=== PATIENT | male | born 1985 | race Caucasian/White ===

== ENCOUNTER 2017-06-26 14:35 | Outpatient (CLI) ==
[2014-01-25 09:16] VITALS: BMI 42.3
== END 2017-06-26 14:36 | disposition short-term general hospital (02) ==
LOC: AMBL 14:35
PROVIDERS: ATTEND Internal Medicine
DX: J18.9 Pneumonia, unspecified organism (principal)

== ENCOUNTER 2017-06-26 16:03 | Outpatient (CLI) ==
[2014-01-25 09:16] VITALS: BMI 42.3
== END 2017-06-26 16:04 | disposition home or self-care (01) ==
LOC: LAB 16:03
PROVIDERS: ATTEND Emergency Medicine
DX: J06.9 Acute upper respiratory infection, unspecified (principal); R68.89 Other general symptoms and signs
CPT/HCPCS: 87804

== ENCOUNTER 2017-08-24 13:20 | Outpatient (CLI) ==
[2014-01-25 09:16] VITALS: BMI 42.3
--- NOTE | 2017-08-24 14:35 | US ---
EXAM: Bilateral lower extremity venous Doppler History: Follow-up extensive bilateral lower extremity venous thrombosis. Comparison: Outside facility lower extremity ultrasound demonstrated bilateral lower extremity throm bosis but this study was not available. Technique: Multiple sonographic images through the bilateral lower extremity were obtained. Color d uplex Doppler was used to interrogate vascular flow. Findings: No residual thrombosis is seen involving the right common femoral, greater saphenous, prof unda, superficial femoral, popliteal, peroneal, posterior tibial and anterior tibial veins. There is persistent thrombosis involving the left profunda, left superficial femoral, left popliteal and left peroneal veins but demonstrates partial compression except with no compression of the left peroneal v ein. Impression: 1. No residual thrombosis of the right lower extremity. 2. Partial nonocclusive thrombosis of the left profunda, left superficial femoral and left popliteal veins and occlusive thrombosis of the left peroneal vein.
== END 2017-08-24 13:21 | disposition home or self-care (01) ==
LOC: RAD 13:20
PROVIDERS: ATTEND Emergency Medicine
DX: I82.4Z3 Acute embolism and thrombosis of unspecified deep veins of distal lower extremity, bilateral (principal); I10 Essential (primary) hypertension; Z79.01 Long term (current) use of anticoagulants
CPT/HCPCS: 36415; 80053; 85025; 85610

== ENCOUNTER 2017-08-31 15:29 | Outpatient (CLI) ==
[2014-01-25 09:16] VITALS: BMI 42.3
== END 2017-08-31 15:30 | disposition home or self-care (01) ==
LOC: RHC-LAB 15:29
PROVIDERS: ATTEND Emergency Medicine
DX: D50.8 Other iron deficiency anemias (principal)
CPT/HCPCS: 36415; 85025

== ENCOUNTER 2017-09-10 12:20 | Outpatient (CLI) ==
[2014-01-25 09:16] VITALS: BMI 42.3
== END 2017-09-10 12:21 | disposition home or self-care (01) ==
LOC: LAB 12:20
PROVIDERS: ATTEND Emergency Medicine
DX: Z51.81 Encounter for therapeutic drug level monitoring (principal); Z79.01 Long term (current) use of anticoagulants; I82.4Z3 Acute embolism and thrombosis of unspecified deep veins of distal lower extremity, bilateral; R31.0 Gross hematuria
CPT/HCPCS: 36415; 81001; 85610

== ENCOUNTER 2017-09-14 14:29 | Outpatient (CLI) ==
[2014-01-25 09:16] VITALS: BMI 42.3
== END 2017-09-14 14:30 | disposition home or self-care (01) ==
LOC: RHC-LAB 14:29
PROVIDERS: ATTEND Emergency Medicine
DX: Z51.81 Encounter for therapeutic drug level monitoring (principal); Z79.01 Long term (current) use of anticoagulants; I82.4Z3 Acute embolism and thrombosis of unspecified deep veins of distal lower extremity, bilateral
CPT/HCPCS: 36415; 85610

== ENCOUNTER 2017-09-17 13:19 | Outpatient (CLI) ==
[2014-01-25 09:16] VITALS: BMI 42.3
== END 2017-09-17 13:20 | disposition home or self-care (01) ==
LOC: RHC-LAB 13:19
PROVIDERS: ATTEND Emergency Medicine
DX: Z51.81 Encounter for therapeutic drug level monitoring (principal); Z79.01 Long term (current) use of anticoagulants
CPT/HCPCS: 36415; 85610

== ENCOUNTER 2017-09-24 16:09 | Outpatient (CLI) ==
[2014-01-25 09:16] VITALS: BMI 42.3
== END 2017-09-24 16:10 | disposition home or self-care (01) ==
LOC: RHC-LAB 16:09
PROVIDERS: ATTEND Emergency Medicine
DX: Z51.81 Encounter for therapeutic drug level monitoring (principal); Z79.01 Long term (current) use of anticoagulants; I82.4Z3 Acute embolism and thrombosis of unspecified deep veins of distal lower extremity, bilateral
CPT/HCPCS: 36415; 85610

== ENCOUNTER 2017-10-01 10:49 | Outpatient (CLI) ==
[2014-01-25 09:16] VITALS: BMI 42.3
== END 2017-10-01 10:50 | disposition home or self-care (01) ==
LOC: RHC-LAB 10:49
PROVIDERS: ATTEND Emergency Medicine
DX: Z51.81 Encounter for therapeutic drug level monitoring (principal); Z79.01 Long term (current) use of anticoagulants; I82.4Z3 Acute embolism and thrombosis of unspecified deep veins of distal lower extremity, bilateral
CPT/HCPCS: 36415; 85610

== ENCOUNTER 2017-10-08 14:00 | Outpatient (RCR) ==
[2014-01-25 09:16] VITALS: BMI 42.3
--- NOTE | 2017-09-14 16:07 | RS.OPPTEV2 ---
Date of Note: 09/11/17 Visit #: 1 Date of Evaluation: 09/11/17 Payer Source: Insurance Date of Onset/Injury/Change in Status: 06/26/17 Treatment Diagnosis: Right foot drop, generalized weakness, gait abnormality History of Condition/Mechanism of Injury:: Patient states this issue all start in June when he got the flu. He developed Acute Respiratory Distress Syndrome with having H1N1 flu. He was transferred to [facility]. He was in ICU for a month with ventilator dependency and multiple complications afterwards with ARDS,diffuse alveolar hemorrhage, bilateral DVTs and also multiple hospital-acquired pneumonia. Patient was extubated and develped critical care illness myopathy and acute delirium. Mental status gradually improved , but he was very deconditioned and he was transferred to [facility] for inpatient rehab. Patient was then discharged home approximately 08/15/17, where he then received Home Health therapy until last week. Prior Level of Function.....Patient was independent with: ADL's, Self Care, Work /Vocation, Caregiving, Ambulation/Mobility, Community Integration/Access Level of Function: Prior to onset, patient was working at [employer] and was fully independent with ambulation and ADL's. Functional Limitations: Sleep, Self Care, ADL's, Reaching, Pushing, Pulling, Lifting, Carrying, Sitting, Standing, Bending, Squatting, Ambulation, Community Access/Integration Current Subjective/complaints:: Patient reports he just finished with Home Health last week. States he still has low endurance and general weakness. States he is walking with a rolling walker outside his home. He lives in a mobile home and can walk without an assistive device because he can hold onto the alex or furniture. He has a wheelchair ramp or stairs to enter his mobile home. He has a roommate that cannot help him at home due to the roommate work schedule. States he has had no falls since being home from the hospital, but has stumbled a few times. He wears his AFO when he is outside his home. He tries to go without it at home, because it causes his leg to swell. States he probably has 15% sensation in the right foot. States he has been having cardiac issues. Blood pressure and hear rate will get high at times. Reports he montiors his pulse oxygen level and heart rate a few times a day. Reports difficulty getting in and out of vehicle, depending on on the height of the vehicle. He has a wheelchair that he uses when going long distances such as [employer]. Reports difficulty sleeping. States he takes Ambien and Xanax to be able to sleep. Reports waking usually around 1-2 am and again at 4-5 am due to jaw pain and/or headaches. The only thing he can take for pain is Tylenol. He also has tried warm compresses. Medical History Medical History: Hypertension, Arthritis (hands and knees) Medical History Comments:: recent loss of over 100 pounds from this hospitalization Smoking Status: Current every day smoker Hx Home Medications: Warfarin,alprazolam,chlorthalidone,fluticasone,hydralazine, loratadine,metoprolol,nifedipine,spironolactone,zolpidem,buspirone,acetaminophen , multivitamin Patient's Goals: His goal is to regain his strenth, prior level of independence , and return to work. Functional Outcome Measure LE Functional Scale: 23 (2380=71.25% impairment) - G Codes & Severity Modifier G Codes & Modifier: NA Source of G Code score: NA Observation - Observation Inspection: Patient presents to therapy department with rolling walker. He has AFO in place to right LE. Posture: Forward Head, Rounded Shoulders Gait - Gait Pattern Gait Comments: Patient ambulates with a rolling walker, independently. He demonstrates decreased stance on right LE as well as decreased right hip and knee flexion. Performs sit to stand transfer independently with good safety. General Range of Motion: Bilateral UE AROM is WFL's throughout. Bilateral LE AROM is WFL's, with the exception of right ankle DF and toe extension. patient is able to wiggle his toes and does show tone in anterior tib with attempts at DF. Muscle Strength: Bilateral UE strength is generally 4/5 throughout. Left wood bucker strength 85 lbs, right wood bucker strength 100 lbs. Left LE 4+/5 throughout. Right LE: hip Abduction,Er,IR 4-/5. all else 4/5. Right knee 4/5. Ankle PF 3+/5, DF 1/5, inversion 3/5, eversion 3-/5. Trunk strength 3/5. Sensation - Sensation Comments: Patient reports slight impaired sensation to light touch and deep pressure along bilateral anterior and lateral thighs. Reports no sensation to light touch and minimal sensation to deep pressure along the entire right lower leg, ankle, and foot. Balance - Sitting Balance Static Sitting Balance: Good Dynamic Sitting Balance: Good - Standing Balance Static Standing Balance: Good (-) Dynamic Standing Balance: Fair (-) Additional Comments: Additional Comments: Bed mobility is independent on low, narrow treatment table. Interventions - Exercise/Activities/Manual Therapy Exercises/Activities: NA Manual Therapy: NA - Charges Timed Code Treatment Minutes: 0 Total Treatment Time: 90 mins Procedures billed for this date of service:: Eval high complexity EVALUATION COMPLEXITY LEVEL EVALUATION COMPLEXITY LEVEL: HISTORY: High (Morbid obesity, HTN, DVT's, prolonged hospitalization), EXAM OF BODY SYSTEMS: High (strength, ROM, sensation , balance, coordination), CLINICAL PRESENTATION: High (HR, blood pressure, and O2 sat cont to be monitored), CLINICAL DECISION MAKING: High Assessment Assessment: Patient presents to therapy with a diagnosis of right foot drop and LE weakness. He presents with general weakness of the trunk and LE's. Demonstrates impaired static and dynamic balance. Requires a walker for safety with ambulation. He demonstrates significant weakness in the right LE and is at a high risk for falls. He demonstrates great potential to benefit from strengthening and balance activities to improve his independence and return to his prior level of function. Patient Education: Education of diagnosis, Body/Joint mechanics, Activity Modification, Education of Plan of Care Rehab Potential: Good Short Term Goals Goal #1: Pt independent and compliant with HEP. Goal to be met by: 09/27/17 Goal #2: Trunk strength improved to 4/5. Goal to be met by: 10/04/17 Goal #3: Right ankle DF 3/5. Goal to be met by: 10/04/17 Goal #4: Pt to amb. with cane short distances, independently with minimal gait dev. 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 Goal to be met by: 10/28/17 Goal #2: Score on LE functional index improved to 50/80. Goal to be met by: 10/28/17 Goal #3: Pt to amb. w/o assistive device independently, community distances. Goal to be met by: 05/20/18 Goal #4: Pt able to return to work with minimal limitations. Goal to be met by: 10/28/17 Plan - Treatment to be Provided Procedures: Therapeutic Exercises, Therapeutic Activity, Neuromuscular Rehab, Patient Education Modalities: Electrical Stimulation (for neuromuscular facilitation to anterior tib) - Treatment Plan Frequency: 2-3 times a week Duration: 6 weeks ORDER # VISITS AND/OR THROUGH DATE: 10/28/17 - Treatment Code (1) Muscle weakness (generalized) Code(s): M62.81 - MUSCLE WEAKNESS (GENERALIZED) Comments: M62.81 (2) Gait abnormality Code(s): R26.9 - UNSPECIFIED ABNORMALITIES OF GAIT AND MOBILITY Comments: R26.9 (3) Impaired functional mobility, balance, gait, and endurance Code(s): Z74.09 - OTHER REDUCED MOBILITY Comments: Z74.09 (4) History of acute respiratory distress syndrome (ARDS) Code(s): Z87.09 - PERSONAL HISTORY OF OTHER DISEASES OF THE RESPIRATORY SYSTEM Comments: Z87.09
--- NOTE | 2017-09-24 14:27 | RS.OPPTDN ---
Subjective Date of Note: 09/24/17 Visit #: 2 Date of Evaluation: 09/11/17 Payer Source: Insurance Treatment Diagnosis: Right foot drop, generalized weakness, gait abnormality Current Subjective/complaints:: Patient enters clinic using walker and wearing R AFO,but reports and demos he is now able to dorsiflex the R ankle after removing the brace. Interventions - Exercise/Activities/Manual Therapy Exercises/Activities: 50 mins. AROM both LE's all directions with 4 # resistance ,3/15 each.Bridging and LAQ's.HEP instruction of same exercises done here today. Total minutes of Exercise: 50 Manual Therapy: NA - Charges Timed Code Treatment Minutes: 50 Total Treatment Time: 50 Procedures billed for this date of service:: ex 3 Assessment: Patient tolerates exercises well,has R ankle dorsiflexion to neutral position today.He reports fatigue only today,no sharp pain noted.He has good safety awareness ,does not use AFO or walker at this time. Patient Education: Education of diagnosis, Body/Joint mechanics, Home Exercise Program, Home Safety, Activity Modification, Education of Plan of Care Short Term Goals Goal #1: Pt independent and compliant with HEP. Goal to be met by: 09/27/17 Progress towards Goal:: Progressing Goal #2: Trunk strength improved to 4/5. Goal to be met by: 10/04/17 Goal #3: Right ankle DF 3/5. Goal to be met by: 10/04/17 Progress towards Goal:: Progressing Goal #4: Pt to amb. with cane short distances, independently with minimal gait dev. Goal to be met by: 10/04/17 Nursing Home Goals Goal #1: Patient knows HEP and to continue ex's to maintain functional level at D/C. Goal to be met by: 10/28/17 Goal #2: Score on LE functional index improved to 50/80. Goal to be met by: 10/28/17 Goal #3: Pt to amb. w/o assistive device independently, community distances. Goal to be met by: 10/28/17 Goal #4: Pt able to return to work with minimal limitations. Goal to be met by: 10/28/17 Plan PLAN OF CARE EXPIRES ON:: 10/28/17 ORDER # VISITS AND/OR THROUGH DATE: 10/28/17 PLAN: Cont PT to return to PLOF,including ADL's and working.
--- NOTE | 2017-09-26 14:22 | RS.OPPTDN ---
Subjective Date of Note: 09/26/17 Visit #: 3 Date of Evaluation: 09/11/17 Payer Source: Insurance Treatment Diagnosis: Right foot drop, generalized weakness, gait abnormality Current Subjective/complaints:: Patient reports no unusual soreness or pain after last session. Interventions - Exercise/Activities/Manual Therapy Exercises/Activities: 60 mins. AROM all extremities,beginning on multi-gym in seated position for postural pullbacks with 10 # ,progressed to 20 #,seated chest press motion with 20 #.biceps curlswith 20 #.LE exercises of legpress @ 90 #,calf raises with 60 #.All exercises 3/15 today.O 2 sats. 95-99 %,HR 105 to 130. Total minutes of Exercise: 60 Manual Therapy: NA Total minutes of Manual Therapy: 0 - Charges Timed Code Treatment Minutes: 55 Total Treatment Time: 65 Procedures billed for this date of service:: ex 4 Assessment: Patient tolerates exercises well.He reports fatigue only ,no increase in pain.He has minimal shakiness as he progresses with treatment.He does have steadier transfers and gait for functional distances. Patient Education: Education of diagnosis, Body/Joint mechanics, Home Exercise Program, Home Safety, Activity Modification, Education of Plan of Care Patient demonstrates compliance with HEP?: Yes Short Term Goals Goal #1: Pt independent and compliant with HEP. Goal to be met by: 09/27/17 Progress towards Goal:: Progressing Goal #2: Trunk strength improved to 4/5. Goal to be met by: 10/04/17 Goal #3: Right ankle DF 3/5. Goal to be met by: 10/04/17 Progress towards Goal:: Progressing Goal #4: Pt to amb. with cane short distances, independently with minimal gait dev. Goal to be met by: 10/04/17 Progress towards Goal:: Progressing Intermediate Goals Goal #1: Patient knows HEP and to continue ex's to maintain functional level at D/C. Goal to be met by: 10/28/17 Goal #2: Score on LE functional index improved to 50/80. Goal to be met by: 10/28/17 Goal #3: Pt to amb. w/o assistive device independently, community distances. Goal to be met by: 10/28/17 Goal #4: Pt able to return to work with minimal limitations. Goal to be met by: 10/28/17 Plan PLAN OF CARE EXPIRES ON:: 10/28/17 ORDER # VISITS AND/OR THROUGH DATE: 10/28/17 PLAN: Cont. PT to improve strength in all extremities and trunk.
--- NOTE | 2017-10-01 14:42 | RS.OPPTDN ---
Subjective Date of Note: 10/01/17 Visit #: 4 Date of Evaluation: 09/11/17 Payer Source: Insurance Treatment Diagnosis: Right foot drop, generalized weakness, gait abnormality Current Subjective/complaints:: Patient reports muscle soreness in the hips after last session,but no sharp pain.He feels the therapy is helping.He enters clinic today without using AFO on the R today ,also no use of walker.He has good safety awareness and has these devices in the car if he is going to be away from home for longer time periods. Interventions - Exercise/Activities/Manual Therapy Exercises/Activities: 60 mins. AROM all extremities,beginning on multi-gym in seated position for postural pullbacks with 20 # ,progressed to 30 #,seated chest press motion with 20 #.Biceps curls with 20 #.LE exercises of leg press @ 120 #,calf raises with 90 #.All exercises 08/23 today.O 2 sats. 95-99 %,HR 99 to 117. Total minutes of Exercise: 60 Manual Therapy: NA Total minutes of Manual Therapy: 0 HOME EXERCISE PROGRAM: Given vidhi thercedrickd for general strengthening to all extremities. - Charges Timed Code Treatment Minutes: 60 Total Treatment Time: 65 Procedures billed for this date of service:: ex 4 Assessment: Patient continues to have increased strenght in all extremities , resulting in steadier transfers and gait.He also has improved heart rate today with resistive exercises,approx. 20 bpm less than last session , O 2 sats. are good. Patient Education: Body/Joint mechanics, Home Exercise Program, Home Safety, Activity Modification, Education of Plan of Care Patient demonstrates compliance with HEP?: Yes Short Term Goals Goal #1: Pt independent and compliant with HEP. Goal to be met by: 09/27/17 Progress towards Goal:: Progressing Goal #2: Trunk strength improved to 4/5. Goal to be met by: 10/04/17 Progress towards Goal:: Progressing Goal #3: Right ankle DF 3/5. Goal to be met by: 10/04/17 Progress towards Goal:: Progressing Goal #4: Pt to amb. with cane short distances, independently with minimal gait dev. 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 Goal to be met by: 10/28/17 Progress towards goal: Progressing Goal #2: Score on LE functional index improved to 50/80. Goal to be met by: 10/28/17 Goal #3: Pt to amb. w/o assistive device independently, community distances. Goal to be met by: 10/28/17 Progress towards goal: Progressing Goal #4: Pt able to return to work with minimal limitations. Goal to be met by: 10/28/17 Plan PLAN OF CARE EXPIRES ON:: 10/28/17 ORDER # VISITS AND/OR THROUGH DATE: 10/28/17 PLAN: Cont. PT to increase strength ,returning him to highest PLOF possible.
--- NOTE | 2017-10-03 15:28 | RS.OPPTDN ---
Subjective Date of Note: 10/03/17 Visit #: 5 Date of Evaluation: 09/11/17 Payer Source: Insurance Treatment Diagnosis: Right foot drop, generalized weakness, gait abnormality Current Subjective/complaints:: Patient reports having to take pain meds. due to jaw pain today.He continues to be pleasant and motivated to improve. Interventions - Exercise/Activities/Manual Therapy Exercises/Activities: 60 mins. AROM all extremities,beginning on multi-gym in seated position for postural pullbacks with 20 # ,progressed to 30 #,seated chest press motion with 20 #.Biceps curls with 20 #.LE exercises of leg press @ 210#,calf raises with 90 #.All exercises 3/15 today.O 2 sats. 95-99 %,HR 99 to 117. Total minutes of Exercise: 60 Manual Therapy: NA Total minutes of Manual Therapy: 0 HOME EXERCISE PROGRAM: Given black theraband for general strengthening to all extremities. - Charges Timed Code Treatment Minutes: 60 Total Treatment Time: 65 Procedures billed for this date of service:: ex 4 Assessment: Patient tolerates exercises well today,plan to progress to standing resistive exercises next session for core strengthening as he does the extremities exercise.He fatigues more easily today with eccentric motions.He continues to have R active dorsiflexion to neutral position ,with additional 10 degrees with passive stretch.He is not wearing AFO today or using walker due to good progress. Patient Education: Body/Joint mechanics, Home Exercise Program, Education of Plan of Care Short Term Goals Goal #1: Pt independent and compliant with HEP. Goal to be met by: 09/27/17 Progress towards Goal:: Progressing Goal #2: Trunk strength improved to 4/5. Goal to be met by: 10/04/17 Progress towards Goal:: Progressing Goal #3: Right ankle DF 3/5. Goal to be met by: 10/04/17 Progress towards Goal:: Progressing Goal #4: Pt to amb. with cane short distances, independently with minimal gait dev. 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 Goal to be met by: 10/28/17 Progress towards goal: Progressing Goal #2: Score on LE functional index improved to 50/80. Goal to be met by: 10/28/17 Goal #3: Pt to amb. w/o assistive device independently, community distances. Goal to be met by: 10/28/17 Progress towards goal: Partially Met Goal #4: Pt able to return to work with minimal limitations. Goal to be met by: 10/28/17 Plan PLAN OF CARE EXPIRES ON:: 10/28/17 ORDER # VISITS AND/OR THROUGH DATE: 10/28/17 PLAN: Cont.PT to improve strength in all extremities and core,resulting in safegait on all surfaces.
--- NOTE | 2017-10-05 14:36 | RS.OPPTDN ---
Subjective Date of Note: 10/05/17 Visit #: 6 Date of Evaluation: 09/11/17 Payer Source: Insurance Treatment Diagnosis: Right foot drop, generalized weakness, gait abnormality Current Subjective/complaints:: No c/o.Reports feeling stronger,enters clinic without assistive device of R AFO. Interventions - Exercise/Activities/Manual Therapy Exercises/Activities: 60 mins. AROM all extremities,beginning on multi-gym in standing position for postural pullbacks with 20 # ,progressed to 30 #,seated chest press motion with 20 #.Biceps curls with 20 #.LE exercises of leg press @ 210#,calf raises with 90 #.All exercises 08/23 today.O 2 sats. 95-99 %,HR 99 to 117. Total minutes of Exercise: 60 Manual Therapy: NA Total minutes of Manual Therapy: 0 HOME EXERCISE PROGRAM: Given black theraband for general strengthening to all extremities. - Charges Timed Code Treatment Minutes: 60 Total Treatment Time: 60 Procedures billed for this date of service:: ex 4 Assessment: Progressing well,has increased UER/LE strength,better control of eccentrics in the UE's.He tolerates the leg press with good technique also.His SOA as he fatigues is easily recovered with good O2 sats. present. Patient Education: Education of diagnosis, Body/Joint mechanics, Home Exercise Program, Home Safety, Activity Modification, Education of Plan of Care Patient demonstrates compliance with HEP?: Yes Short Term Goals Goal #1: Pt independent and compliant with HEP. Goal to be met by: 09/27/17 Progress towards Goal:: Progressing Goal #2: Trunk strength improved to 4/5. Goal to be met by: 10/04/17 Progress towards Goal:: Progressing Goal #3: Right ankle DF 3/5. Goal to be met by: 10/04/17 Progress towards Goal:: Partially Met Goal #4: Pt to amb. with cane short distances, independently with minimal gait dev. Goal to be met by: 10/04/17 Progress towards Goal:: Met Care Home Goals Goal #1: Patient knows HEP and to continue ex's to maintain functional level at D/C. Goal to be met by: 10/28/17 Progress towards goal: Progressing Goal #2: Score on LE functional index improved to 50/80. Goal to be met by: 10/28/17 Goal #3: Pt to amb. w/o assistive device independently, community distances. Goal to be met by: 10/28/17 Progress towards goal: Partially Met Goal #4: Pt able to return to work with minimal limitations. Goal to be met by: 10/28/17 Plan PLAN OF CARE EXPIRES ON:: 10/28/17 ORDER # VISITS AND/OR THROUGH DATE: 10/28/17 PLAN: Continue PT to return patient to PLOF,safely returning to work.
--- NOTE | 2017-10-08 15:17 | RS.OPPTDN ---
Subjective Date of Note: 10/08/17 Visit #: 7 Date of Evaluation: 09/11/17 Payer Source: Insurance Treatment Diagnosis: Right foot drop, generalized weakness, gait abnormality Current Subjective/complaints:: Patient continues to be highly motivated.He had appt. earlier today with the neurologist,is released to drive . Interventions - Exercise/Activities/Manual Therapy Exercises/Activities: 60 mins. ,beginning on elliptical for 2.5 mins. supervised ,followed by dynamic balance exercises of standing on theraband platform system,weaving in and around cones in floor,stepping over cones ,both forwards and laterally.Picking up cones from floor level.UE / core strengthening using 20 # resistance on multi-gym for postural pullbacks 315 , seated biceps curls,3/10 reps. Total minutes of Exercise: 60 Manual Therapy: NA Total minutes of Manual Therapy: 0 HOME EXERCISE PROGRAM: Given black theraband for general strengthening to all extremities. - Charges Timed Code Treatment Minutes: 60 Total Treatment Time: 60 Procedures billed for this date of service:: NMR 3,ex 1 Assessment: Patient has improved dynamic balance for higher level challenges.He domingo ssafe O@ saturations and heart rate with moderate activity.He does require frequent rest periods due to weakness in trunk and all extremities.He hs mderate SOA,but recovers well with rest periods. Patient Education: Body/Joint mechanics, Home Exercise Program, Home Safety, Activity Modification, Education of Plan of Care Short Term Goals Goal #1: Pt independent and compliant with HEP. Goal to be met by: 09/27/17 Progress towards Goal:: Progressing Goal #2: Trunk strength improved to 4/5. Goal to be met by: 10/04/17 Progress towards Goal:: Progressing Goal #3: Right ankle DF 3/5. Goal to be met by: 10/04/17 Progress towards Goal:: Partially Met Goal #4: Pt to amb. with cane short distances, independently with minimal gait dev. 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 Goal to be met by: 10/28/17 Progress towards goal: Progressing Goal #2: Score on LE functional index improved to 50/80. Goal to be met by: 10/28/17 Goal #3: Pt to amb. w/o assistive device independently, community distances. Goal to be met by: 10/28/17 Progress towards goal: Partially Met Goal #4: Pt able to return to work with minimal limitations. Goal to be met by: 10/28/17 Plan PLAN OF CARE EXPIRES ON:: 10/28/17 ORDER # VISITS AND/OR THROUGH DATE: 10/28/17 PLAN: Continue skilled PT to improve strength in trunk and all extremities, returning to highest level of function.
== END 2017-10-08 23:59 ==
PROVIDERS: ATTEND Emergency Medicine
DX: M21.371 Foot drop, right foot (principal)

== ENCOUNTER 2017-10-09 12:29 | Outpatient (CLI) ==
[2017-08-24 13:26] VITALS: BMI 42.3
== END 2017-10-09 12:30 | disposition home or self-care (01) ==
LOC: RHC-LAB 12:29
PROVIDERS: ATTEND Emergency Medicine
DX: I82.4Z3 Acute embolism and thrombosis of unspecified deep veins of distal lower extremity, bilateral (principal)
CPT/HCPCS: 36415; 85610

== ENCOUNTER 2017-10-16 15:06 | Outpatient (CLI) ==
[2017-08-24 13:26] VITALS: BMI 42.3
== END 2017-10-16 15:07 | disposition home or self-care (01) ==
LOC: RHC-LAB 15:06
PROVIDERS: ATTEND Emergency Medicine
DX: Z51.81 Encounter for therapeutic drug level monitoring (principal); Z79.01 Long term (current) use of anticoagulants; M26.609 Unspecified temporomandibular joint disorder, unspecified side
CPT/HCPCS: 36415; 85610

== ENCOUNTER 2017-10-23 15:33 | Outpatient (CLI) ==
[2017-08-24 13:26] VITALS: BMI 42.3
== END 2017-10-23 15:34 | disposition home or self-care (01) ==
LOC: RHC-LAB 15:33
PROVIDERS: ATTEND Emergency Medicine
DX: Z51.81 Encounter for therapeutic drug level monitoring (principal); Z79.01 Long term (current) use of anticoagulants
CPT/HCPCS: 36415; 85610

== ENCOUNTER 2017-10-26 13:00 | Outpatient (RCR) ==
[2017-08-24 13:26] VITALS: BMI 42.3
--- NOTE | 2017-10-10 15:20 | RS.OPPTDN ---
Subjective Date of Note: 10/10/17 Visit #: 8 Date of Evaluation: 09/11/17 Payer Source: Insurance Treatment Diagnosis: Right foot drop, generalized weakness, gait abnormality Current Subjective/complaints:: Patient reports feeling better on a daily basis this week. Interventions - Exercise/Activities/Manual Therapy Exercises/Activities: 50 mins. BIODbluepulse BALANCE SYSTEM , including postural stability,weight shifting ,limits of stability , maze control,random control, ball toss exercise. Total minutes of Exercise: 50 Manual Therapy: NA HOME EXERCISE PROGRAM: Given vidhi clark for general strengthening to all extremities. - Charges Timed Code Treatment Minutes: 50 Total Treatment Time: 50 Procedures billed for this date of service:: NMR 3 Assessment: Improved static and dynamic balance ,reports R ankle and R heel discomfort with prolonged static stance today.He has steadier gait ,continues to not use R AFO as the active dorsiflexion has improved.He is very motivated and compliant to all recommendations of the therapy staff. Patient Education: Education of diagnosis, Body/Joint mechanics, Home Exercise Program, Home Safety, Activity Modification, Education of Plan of Care Short Term Goals Goal #1: Pt independent and compliant with HEP. Goal to be met by: 09/27/17 Progress towards Goal:: Progressing Goal #2: Trunk strength improved to 4/5. Goal to be met by: 10/04/17 Progress towards Goal:: Progressing Goal #3: Right ankle DF 3/5. Goal to be met by: 10/04/17 Progress towards Goal:: Partially Met Goal #4: Pt to amb. with cane short distances, independently with minimal gait dev. 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 Goal to be met by: 10/28/17 Progress towards goal: Progressing Goal #2: Score on LE functional index improved to 50/80. Goal to be met by: 10/28/17 Goal #3: Pt to amb. w/o assistive device independently, community distances. Goal to be met by: 10/28/17 Progress towards goal: Partially Met Goal #4: Pt able to return to work with minimal limitations. Goal to be met by: 10/28/17 Plan PLAN OF CARE EXPIRES ON:: 10/28/17 ORDER # VISITS AND/OR THROUGH DATE: 10/28/17 PLAN: Continue PT to return patient to highest level of function ,including return to work safely.
--- NOTE | 2017-10-12 15:13 | RS.OPPTDN ---
Subjective Date of Note: 10/12/17 Visit #: 9 Date of Evaluation: 09/11/17 Payer Source: Insurance Treatment Diagnosis: Right foot drop, generalized weakness, gait abnormality Current Subjective/complaints:: Patient reports he has not slept well the past few nights,sometimes due to L jaw pain. Interventions - Exercise/Activities/Manual Therapy Exercises/Activities: 50 mins. total,beginning on elliptical (supervised)for 2.5 mins. ,then progressed to seated leg press,beginning woth both LE's @ 150#, 180#,210#,15 reps. each.Single leg press @ 75#,3/15 each LE.R ankle active dorsiflexion with blue theraband.Ended session with 5 reps.standing mini-squats with large therapy ball on wall behind his back.O2 sats.96-98%,hr 107 -130 bpm. Total minutes of Exercise: 50 Manual Therapy: NA Total minutes of Manual Therapy: 0 HOME EXERCISE PROGRAM: Given black theraband for general strengthening to all extremities. - Charges Timed Code Treatment Minutes: 50 Total Treatment Time: 55 Procedures billed for this date of service:: ex 3 Assessment: Patient fatigues more easily today ,possibly due to not sleeping as well recently.He reports knee pain with mini-squats due arthritic symptoms, crepitus present.He does have good technique with exercises,excellent awareness of his limitations. Patient Education: Education of diagnosis, Body/Joint mechanics, Home Exercise Program, Home Safety, Activity Modification, Education of Plan of Care Patient demonstrates compliance with HEP?: Yes Short Term Goals Goal #1: Pt independent and compliant with HEP. Goal to be met by: 09/27/17 Progress towards Goal:: Progressing Goal #2: Trunk strength improved to 4/5. Goal to be met by: 10/04/17 Progress towards Goal:: Progressing Goal #3: Right ankle DF 3/5. Goal to be met by: 10/04/17 Progress towards Goal:: Met Goal #4: Pt to amb. with cane short distances, independently with minimal gait dev. Goal to be met by: 10/04/17 Progress towards Goal:: Met [facility] Goals Goal #1: Patient knows HEP and to continue ex's to maintain functional level at D/C. Goal to be met by: 10/28/17 Progress towards goal: Progressing Goal #2: Score on LE functional index improved to 50/80. Goal to be met by: 10/28/17 Goal #3: Pt to amb. w/o assistive device independently, community distances. Goal to be met by: 10/28/17 Progress towards goal: Partially Met Goal #4: Pt able to return to work with minimal limitations. Goal to be met by: 10/28/17 Plan PLAN OF CARE EXPIRES ON:: 10/28/17 ORDER # VISITS AND/OR THROUGH DATE: 10/28/17 PLAN: Continue skilled PT to return to PLOF for safe DL's,return to work safely.
--- NOTE | 2017-10-15 15:27 | RS.OPPTDN ---
Subjective Date of Note: 10/15/17 Visit #: 10 Date of Evaluation: 09/11/17 Payer Source: Insurance Treatment Diagnosis: Right foot drop, generalized weakness, gait abnormality Current Subjective/complaints:: Patient reports increased L jaw pain today , but overall feels stronger . Interventions - Exercise/Activities/Manual Therapy Exercises/Activities: 60 mins. total,beginning on treadmill x 8.5 mins. for 2/ 10th of a mile ,supervised HR and O2 sats.Multi gym resistive exercises for UE all directions,trunk rotation ,chest press,biceps curls ,push downs.Resistance beginning @ 30 # ,increased to 40 # ,3/20 each motion .50 # used for pushdowms toward floor.HEP review.HR 108 -142 ,O2 sats 95 -97% Total minutes of Exercise: 60 Manual Therapy: NA Total minutes of Manual Therapy: 0 HOME EXERCISE PROGRAM: Given black theraband for general strengthening to all extremities. - Charges Timed Code Treatment Minutes: 60 Total Treatment Time: 60 Procedures billed for this date of service:: ex 4 Assessment: Progressing well in all areas.He has improved core strength , continues to have R dorsi flexion ,resulting in ambulating without assistive device or R AFO.Hhis eccentric control for UE's is improving.He requires frequent rest periods as the resistive exercises progress. Patient Education: Body/Joint mechanics, Activity Modification, Education of Plan of Care Patient demonstrates compliance with HEP?: Yes Short Term Goals Goal #1: Pt independent and compliant with HEP. Goal to be met by: 09/27/17 Progress towards Goal:: Partially Met Goal #2: Trunk strength improved to 4/5. Goal to be met by: 10/04/17 Progress towards Goal:: Partially Met Goal #3: Right ankle DF 3/5. Goal to be met by: 10/04/17 Progress towards Goal:: Met Goal #4: Pt to amb. with cane short distances, independently with minimal gait dev. Goal to be met by: 10/04/17 Progress towards Goal:: Met M[facility] Goals Goal #1: Patient knows HEP and to continue ex's to maintain functional level at D/C. Goal to be met by: 10/28/17 Progress towards goal: Progressing Goal #2: Score on LE functional index improved to 50/80. Goal to be met by: 10/28/17 Goal #3: Pt to amb. w/o assistive device independently, community distances. Goal to be met by: 10/28/17 Progress towards goal: Partially Met Goal #4: Pt able to return to work with minimal limitations. Goal to be met by: 10/28/17 Plan PLAN OF CARE EXPIRES ON:: 10/28/17 ORDER # VISITS AND/OR THROUGH DATE: 10/28/17 PLAN: Continue skilled PT to return patient to PLOF.
--- NOTE | 2017-10-17 15:31 | RS.OPPTDN ---
Subjective Date of Note: 10/17/17 Visit #: 11 Date of Evaluation: 09/11/17 Payer Source: Insurance Treatment Diagnosis: Right foot drop, generalized weakness, gait abnormality Current Subjective/complaints:: Patient reports feeling stronger for short duration ADL's,but feels he has minnimal endurance at this time. Interventions - Exercise/Activities/Manual Therapy Exercises/Activities: 60 mins. total,beginning on leg press,3/20 reps. 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 Total minutes of Exercise: 60 Manual Therapy: NA Total minutes of Manual Therapy: 0 HOME EXERCISE PROGRAM: Given black theraband for general strengthening to all extremities. 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 Patient Education: Education of diagnosis, Body/Joint mechanics, Home Exercise Program, Home Safety, Activity Modification, Education of Plan of Care Patient demonstrates compliance with HEP?: Yes Short Term Goals Goal #1: Pt independent and compliant with HEP. Goal to be met by: 09/27/17 Progress towards Goal:: Partially Met Goal #2: Trunk strength improved to 4/5. Goal to be met by: 10/04/17 Progress towards Goal:: Partially Met Goal #3: Right ankle DF 3/5. Goal to be met by: 10/04/17 Progress towards Goal:: Met Goal #4: Pt to amb. with cane short distances, independently with minimal gait dev. 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 Goal to be met by: 10/28/17 Progress towards goal: Progressing Goal #2: Score on LE functional index improved to 50/80. Goal to be met by: 10/28/17 (39 today) Progress towards goal: Progressing Goal #3: Pt to amb. w/o assistive device independently, community distances. Goal to be met by: 10/28/17 Progress towards goal: Partially Met Goal #4: Pt able to return to work with minimal limitations. 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
--- NOTE | 2017-10-19 16:27 | RS.OPPTDN ---
Subjective Date of Note: 10/19/17 Visit #: 12 Date of Evaluation: 09/11/17 Payer Source: Insurance Treatment Diagnosis: Right foot drop, generalized weakness, gait abnormality Current Subjective/complaints:: No c/o. Interventions - Exercise/Activities/Manual Therapy Exercises/Activities: 50 mins. total,BIODFacebook BALANCE SYSTEM for each challenge of postural stability ,limits of stability,maze ,weight shift percentages of weight distribution,random control at medium skill level today. Total minutes of Exercise: 50 Manual Therapy: NA Total minutes of Manual Therapy: 0 HOME EXERCISE PROGRAM: Given vidhi clark for general strengthening to all extremities. - Charges Timed Code Treatment Minutes: 50 Total Treatment Time: 60 Procedures billed for this date of service:: NMR 3 Assessment: Patient tolerates higher level challenges today at medium difficulty level.He only reports R ankle weakness as the treatment progresses.He continues to have active R dorsiflexion ,ambulating without any assistive device ,or AFO. Patient Education: Education of Plan of Care Patient demonstrates compliance with HEP?: Yes Short Term Goals Goal #1: Pt independent and compliant with HEP. Goal to be met by: 09/27/17 Progress towards Goal:: Partially Met Goal #2: Trunk strength improved to 4/5. Goal to be met by: 10/04/17 Progress towards Goal:: Met Goal #3: Right ankle DF 3/5. Goal to be met by: 10/04/17 Progress towards Goal:: Met Goal #4: Pt to amb. with cane short distances, independently with minimal gait dev. 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 Goal to be met by: 10/28/17 Progress towards goal: Partially Met Goal #2: Score on LE functional index improved to 50/80. Goal to be met by: 10/28/17 (39 today) Progress towards goal: Progressing Goal #3: Pt to amb. w/o assistive device independently, community distances. Goal to be met by: 10/28/17 Progress towards goal: Partially Met Goal #4: Pt able to return to work with minimal limitations. Goal to be met by: 10/28/17 Plan PLAN OF CARE EXPIRES ON:: 05/20/18 ORDER # VISITS AND/OR THROUGH DATE: 10/28/17 PLAN: Continue skilled PT for patient LOF ,return to [facility] safely.
--- NOTE | 2017-10-22 14:13 | RS.OPPTDN ---
Subjective Date of Note: 10/22/17 Visit #: 13 Date of Evaluation: 09/11/17 Payer Source: Insurance Treatment Diagnosis: Right foot drop, generalized weakness, gait abnormality Current Subjective/complaints:: Patient reports feeling stronger ,was eable to get uop from floor without assistance over the weekend. Interventions - Exercise/Activities/Manual Therapy Exercises/Activities: 55mins. total, 08/28 multi gym exercises with 20 # for biceps curls ,30 # for pullbacks ,40 # for standing chest press motion.1 set each for trunk rotation with 30 # ,to L and R side.Ended session on leg press , @ 225#,calf raises x 20 reps with 225 #.O2 sats. @97-98 %.HR 105 -135 without symptoms. Total minutes of Exercise: 55 Manual Therapy: NA Total minutes of Manual Therapy: 0 HOME EXERCISE PROGRAM: Given black theraband for general strengthening to all extremities. - Charges Timed Code Treatment Minutes: 55 Total Treatment Time: 60 Procedures billed for this date of service:: ex 4 Assessment: Patient progressing well toward all rehab goals,increased strength in core and all extremities,with report of fatigue only,no chest pain or extreme SOA.He is aware of initiating D/C plan due to good progress. Patient Education: Body/Joint mechanics, Home Exercise Program, Home Safety, Education of Plan of Care Patient demonstrates compliance with HEP?: Yes Short Term Goals Goal #1: Pt independent and compliant with HEP. Goal to be met by: 09/27/17 Progress towards Goal:: Met Goal #2: Trunk strength improved to 4/5. Goal to be met by: 10/04/17 Progress towards Goal:: Met Goal #3: Right ankle DF 3/5. Goal to be met by: 10/04/17 Progress towards Goal:: Met Goal #4: Pt to amb. with cane short distances, independently with minimal gait dev. 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 Goal to be met by: 10/28/17 Progress towards goal: Partially Met Goal #2: Score on LE functional index improved to 50/80. Goal to be met by: 10/28/17 Progress towards goal: Progressing Goal #3: Pt to amb. w/o assistive device independently, community distances. Goal to be met by: 10/28/17 Progress towards goal: Met Goal #4: Pt able to return to work with minimal limitations. Goal to be met by: 10/28/17 Plan PLAN OF CARE EXPIRES ON:: 10/28/17 ORDER # VISITS AND/OR THROUGH DATE: 10/28/17 PLAN: Cont. skilled PT to achieve maximum strength for safe ADL' s.
--- NOTE | 2017-10-26 14:44 | RS.OPPTDC ---
Date of Discharge: 10/26/17 Date of Evaluation: 09/11/17 Number of Visits: 14 Treatment Diagnosis: Right foot drop, generalized weakness, gait abnormality Current Level of Function: 52.25 % LE strength deficit currently per functional scale test. Functional Outcome Measure LE Functional Scale: 39 - G Codes & Severity Modifier G Codes & Modifier: NA Source of G Code score: NA Observation - Observation Posture: Normal General Range of Motion: WNL Muscle Strength: UE's 4/5,LE's 4 + /5 Interventions - Exercise/Activities/Manual Therapy Exercises/Activities: 50mins. total, 08/28 multi gym exercises with 20 # for biceps curls ,30 # for pullbacks ,40 # for standing chest press motion.1 set each for trunk rotation with 30 # ,to L and R side.Ended session on leg press , @ 225#,calf raises x 20 reps with 225 #.O2 sats. @97-98 %.HR 91 @ rest , 105 -135 with exercise. Total minutes of Exercise: 50 Manual Therapy: NA Total minutes of Manual Therapy: 0 HOME EXERCISE PROGRAM: Given black thertasha for general strengthening to all extremities. - Charges Timed Code Treatment Minutes: 50 Total Treatment Time: 65 Procedures billed for this date of service:: ex 3 Assessment Assessment: Patient has met rehab potential at this time ,has follow-up appt. with in approx. 1 1/2 weeks.He has good understanding of HEP.He fatigues easily with prolonged standing activities at this time .We discussed the Dr. sinclair recommend a work hardening program when he feels it is feasible and safe.The protocol we have been doing can be continued independently,as he has good awareness of his limitations,monitors his BP ,HR and O2 sats. Patient Education: Education of diagnosis, Body/Joint mechanics, Home Exercise Program, Home Safety, Activity Modification, Education of Plan of Care Rehab Potential: Good Short Term Goals Goal #1: Pt independent and compliant with HEP. Goal to be met by: 09/27/17 Progress towards Goal:: Met Goal #2: Trunk strength improved to 4/5. Goal to be met by: 10/04/17 Progress towards Goal:: Met Goal #3: Right ankle DF 3/5. Goal to be met by: 10/04/17 Progress towards Goal:: Met Goal #4: Pt to amb. with cane short distances, independently with minimal gait dev. 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 Goal to be met by: 10/28/17 Progress towards goal: Met Goal #2: Score on LE functional index improved to 50/80. Goal to be met by: 10/28/17 (39/80 today and 39 /80 on visit 11) Progress towards goal: No Change Comments: score 23 at eval,but no change from visit 11 to today (visit 14 ) Goal #3: Pt to amb. w/o assistive device independently, community distances. Goal to be met by: 10/28/17 Progress towards goal: Met Goal #4: Pt able to return to work with minimal limitations. Goal to be met by: 10/28/17 Progress towards goal: Not Met Comments: N/A ,still under 's care Plan Reason for Discharge:: Maximum Potential Met (Ptential met at this time in this setting,may benefit from work hardening program when feasible.)
== END 2017-11-08 23:59 ==
PROVIDERS: ATTEND Emergency Medicine
DX: M21.371 Foot drop, right foot (principal); M62.81 Muscle weakness (generalized); R26.9 Unspecified abnormalities of gait and mobility; Z74.09 Other reduced mobility; Z87.09 Personal history of other diseases of the respiratory system

== ENCOUNTER 2017-10-30 14:02 | Outpatient (CLI) ==
[2017-08-24 13:26] VITALS: BMI 42.3
== END 2017-10-30 14:03 | disposition home or self-care (01) ==
LOC: RHC-LAB 14:02
PROVIDERS: ATTEND Emergency Medicine
DX: Z51.81 Encounter for therapeutic drug level monitoring (principal); Z79.01 Long term (current) use of anticoagulants
CPT/HCPCS: 36415; 85610

== ENCOUNTER 2017-11-08 15:30 | Outpatient (CLI) ==
[2017-08-24 13:26] VITALS: BMI 42.3
== END 2017-11-08 15:31 | disposition home or self-care (01) ==
LOC: RHC-LAB 15:30
PROVIDERS: ATTEND Emergency Medicine
DX: Z51.81 Encounter for therapeutic drug level monitoring (principal); Z79.01 Long term (current) use of anticoagulants
CPT/HCPCS: 36415; 85610

== ENCOUNTER 2017-11-16 15:50 | Outpatient (CLI) ==
[2017-08-24 13:26] VITALS: BMI 42.3
== END 2017-11-16 15:51 | disposition home or self-care (01) ==
LOC: RHC-LAB 15:50
PROVIDERS: ATTEND Emergency Medicine
DX: Z51.81 Encounter for therapeutic drug level monitoring (principal); Z79.01 Long term (current) use of anticoagulants
CPT/HCPCS: 36415; 85610

== ENCOUNTER 2017-12-06 14:53 | Outpatient (CLI) ==
[2017-08-24 13:26] VITALS: BMI 42.3
== END 2017-12-06 14:54 | disposition home or self-care (01) ==
LOC: RHC-LAB 14:53
PROVIDERS: ATTEND Emergency Medicine
DX: E78.5 Hyperlipidemia, unspecified (principal); I82.4Z3 Acute embolism and thrombosis of unspecified deep veins of distal lower extremity, bilateral; I10 Essential (primary) hypertension; Z79.01 Long term (current) use of anticoagulants
CPT/HCPCS: 36415; 80053; 80061; 84443; 85025; 85610

== ENCOUNTER 2017-12-18 12:06 | Outpatient (CLI) ==
[2017-08-24 13:26] VITALS: BMI 42.3
== END 2017-12-18 12:07 | disposition home or self-care (01) ==
LOC: RHC-LAB 12:06
PROVIDERS: ATTEND Emergency Medicine
DX: E87.6 Hypokalemia (principal)
CPT/HCPCS: 36415; 80053